=== PATIENT | female | born 1985 | race African-American/Black ===

== ENCOUNTER 2025-03-12 11:55 | Emergency (ER) | payer OTHER ==
[~2025-03-12] VITALS: Ht 162.6 cm; Wt 79.5 kg
[2025-03-12 12:00] VITALS: PULSE 80; RESP 20; TEMP 97.8; O2SAT 97
[2025-03-12] MEDS ORDERED: CEPHALEXIN500 MG PO (12:39)
== END 2025-03-12 12:45 | disposition home or self-care (01) ==
LOC: FSED 12:03
DX: T81.31XA Disruption of external operation (surgical) wound, not elsewhere classified, initial encounter (principal); M96.841 Postprocedural hematoma of a musculoskeletal structure following other procedure
CPT/HCPCS: 99284